=== PATIENT | male | born 1955 | race Caucasian/White ===

== ENCOUNTER 2017-12-16 07:30 | Inpatient (IN) | payer OTHER ==
[~2017-12-16] VITALS: Ht 167.6 cm; Wt 70.3 kg
[~2017-12-16 07:30] MED LIST: AMOX1TAB12 PO; ENDOCET 5/325 T1 TAB PO; TORADOL60 MG IM
[2017-12-16] MEDS ORDERED: FORTAMET1000 MG PO (09:15)
[2017-12-16] MEDS ORDERED: METFORMIN HCL500 M2 PO (09:15)
[2017-12-16] MEDS ORDERED: ZOCOR5 MG PO (09:15)
[2017-12-24] MEDS ORDERED: INTEGRA PLUS C1 EACH PO (06:26)
[2017-12-24] MEDS ORDERED: XARELTO10 MG PO (06:26)
[2017-12-24] MEDS ORDERED: OXYC1TAB9 PO (06:26)
== END 2017-12-24 13:49 | DRG 470 ==
LOC: SURH 12-21 06:35 → O/R 12-21 06:35 → SURH 12-21 07:30
PROVIDERS: Orthopaedic Surgery Sports Medicine
PROC: 0SR90JZ Replacement of Right Hip Joint with Synthetic Substitute, Open Approach (ICD-10-PCS; principal; 2017-12-21 11:15)
DX: M16.11 Unilateral primary osteoarthritis, right hip (principal)

== ENCOUNTER 2024-09-02 08:17 | Outpatient (CLI) | payer OTHER ==
[~2024-09-02 08:17] MED LIST changes: +FORTAMET1000 MG PO; +INTEGRA PLUS C1 EACH PO; +METFORMIN HCL500 M2 PO; +OXYC1TAB9 PO; +XARELTO10 MG PO; +ZOCOR5 MG PO
== END 2024-09-02 08:21 | disposition home or self-care (01) ==
LOC: RAD 08:17
PROVIDERS: ATTEND Orthopaedic Surgery
DX: M48.061 Spinal stenosis, lumbar region without neurogenic claudication (principal)